=== PATIENT | female | born 1945 | race Caucasian/White ===

== ENCOUNTER 2022-03-28 13:08 | Emergency (ER) | payer MEDICARE, SELFPAY | END 2022-03-28 14:28 | disposition home or self-care (01) | LOC: ERS 13:08 | DX: S82.001A Unspecified fracture of right patella, initial encounter for closed fracture (principal); S12.9XXA Fracture of neck, unspecified, initial encounter; W18.09XA Striking against other object with subsequent fall, initial encounter | CPT/HCPCS: 99283 ==